=== PATIENT | male | born 1950 | race Caucasian/White ===

== ENCOUNTER 2016-06-09 11:34 | Inpatient (IN) | payer BC, OTHER ==
[2016-06-03 15:32] VITALS: Ht 179.1 cm; Wt 97.7 kg
[2016-06-04 12:18] LABS: BASO % 0.4 %; BASO ABS # 0.02 K/uL (0-0.2); COMPLETE YES; IG% 0.2 %; LYMPH % 26.4 %; LYMPH ABS # 1.39 K/uL (1.2-3.4); MEAN CELL VOLUME 90.3 fL (80-100); MEAN CORPUSCULAR HEMOGLOBIN 29.6 pg (25-34); MEAN CORPUSCULAR HGB CONC 32.8 g/dl (32-36); MEAN PLATELET VOLUME 9.7 fL (7.4-10.4); MONO % 12.7 %; NEUT % 56.3 %; PLATELET COUNT 222 K/uL (130-400); RED BLOOD COUNT 4.76 M/uL (4.7-6.1); WHITE BLOOD COUNT 5.27 K/uL (4.8-10.8)
[2016-06-04 12:35] LABS: PARTIAL THROMBOPLASTIN RATIO 1.1; PROTHROMBIN TIME (PATIENT) 11.1 SECONDS (9.0-12.0)
[2016-06-04 12:40] LABS: URINE APPEARANCE CLEAR (CLEAR); URINE BILIRUBIN NEG (NEG); URINE COLOR YELLOW; URINE EPITHELIAL CELL AUTO 0-5 /lpf (0-5); URINE NITRITE NEG (NEG); URINE PH 7.5 (4.5-7.5); URINE SPECIFIC GRAVITY 1.014 (1.000-1.030); UROBILINOGEN NEG (NEG); ZZUR CULT IF INDIC CLEAN CATCH NO
[2016-06-04 12:47] LABS: MANUAL MICROSCOPIC REQUIRED? NO; REVIEW REQ? NO
[2016-06-04 13:07] LABS: CREATININE 0.72 mg/dl (0.60-1.40)
--- NOTE | 2016-06-08 14:31 | HISTORY & PHYSICAL EXAMINATION ---
DATE OF ADMISSION: 06/09/2016 CHIEF COMPLAINT: Painful right total knee replacement with probable extensor mechanism rupture. HISTORY OF PRESENT ILLNESS: Mr. North is a 66-year-old male who had his knee replaced in December 2015. The patient was doing well; however, he has been noticing increased swelling and instability in the right knee. He denies any injury or trauma. On exam in the office, patient was found to have likely rupture of his medial retinaculum and has been scheduled for extensor mechanism repair. PAST MEDICAL HISTORY: Asthma, irregular heartbeat, colitis and tremor. He denies heart disease, diabetes or DVT. PAST SURGICAL HISTORY: Vasectomy, hemorrhoidectomy and right TKA. SOCIAL HISTORY: The patient drinks 2-3 drinks per week. Denies tobacco use. He lives in a 2-story home with his and is a retired schoolteacher. FAMILY HISTORY: Negative for DVT. MEDICATIONS: Aspirin 81 mg daily, Azilect 1 mg daily, Flovent 112 mcg 1-2 puffs daily, Proventil 90 mcg p.r.n., Lialda 1.2 grams 2 daily, calcium, fish oil, vitamin D3, folic acid, Viagra p.r.n. ALLERGIES: NSAIDs IN MODERATION DUE TO COLITIS. REVIEW OF SYSTEMS: See HPI. Ten other systems reviewed, all negative. PHYSICAL EXAMINATION: VITAL SIGNS: Height 5 feet 10 inches, weight 214 pounds, BMI 31. GENERAL: This is a well-developed, well-nourished male who is alert and oriented x3. Mood and affect are appropriate. HEENT: Normocephalic, atraumatic. Mucous membranes are moist and intact. NECK: Supple without lymphadenopathy. HEART: Regular rate and rhythm without murmurs, rubs or gallops. LUNGS: Clear to auscultation without wheezes or rhonchi. ABDOMEN: Soft and nontender. Bowel sounds are equal and active. EXTREMITIES: No ecchymosis, redness or warmth. He has a midline incision that is well healed. He has moderate prepatellar effusion. He also has a small scar in the anterior portions of his knee from a chainsaw incident. He has neutral alignment. Range of motion is from 0-120 degrees. He has no laxity. He is neurovascularly intact. X-RAY EXAMINATION: AP and lateral views show a posterior stabilized knee in adequate position. His patellar is tracking laterally on the sunrise view. 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 PLAN: The patient will be admitted for extensor mechanism repair and probably change of the right knee. We will plan on aspirin for DVT prophylaxis. PCP is Dr. Mejia.
[~2016-06-09] VITALS: Ht 179.1 cm; Wt 97.7 kg
[2016-06-09] VITALS (7 sets, daily range): BP systolic 135–177; BP diastolic 77–94; PULSE 56–66; TEMP 36.4–36.7; O2SAT 96–100
[2016-06-09] MEDS: TRANEXAMIC ACID INJ 1,000 MG in SODIUM CHLORIDE 0.9% 100ML 100 ML IV SCH ×2 (06:30→13:45)
[~2016-06-09 11:34] MED LIST: ACETAMINOPHEN 500 MG TAB PO SCH; ALBUAER INH; ASPI81TA28 PO; AZL/5 PO; BUPIVACAINE 0.25% 30 ML VIAL ONE; BUPIVACAINE 0.5 % 5 MG/1 ML PF 10ML VIAL ONE; CEFAZOLIN 2000 MG/60 ML D5W 60 ML IV SCH; DEXAMETHASONE 4 MG TAB PO SCH; FAMOTIDINE 20 MG TAB PO SCH; FLVHFA44 INH; FOLI1TAB7 PO; GABAPENTIN 300 MG CAP PO SCH; LACTATED RINGER'S 1000ML 1,000 ML IV SCH; MESA1.2T PO; METOCLOPRAMIDE HCL 10 MG TAB PO SCH; OXYCODONE HCL 10 MG TABCR (OXYCONTIN) PO SCH; POLYMYXIN B SULFATE 100,000 UNITS in NSS 100ML IR SCH; ROPIVACAINE 5MG/ML 30 ML 150 MG, BUPIVACAINE/EPINEPHR 0.5% MPF 30 ML, KETOROLAC TROMETH... INFIL SCH; SILD100T PO; VANCOMYCIN INJ 1,500 MG in SODIUM CHLORIDE 0.9% 500ML 500 ML IV SCH; VANCOMYCIN INJ 400 MG in NSS 100ML IR SCH
[2016-06-09] MEDS ORDERED: MIDAZOLAM HCL 1 MG/ML 2ML VIAL ONE ×2 (11:56)
--- NOTE | 2016-06-09 12:38 | History & Physical Bridge Note ---
H&P Re-Evaluation Bridge Note: I have examined the patient, reviewed the History & Physical and in the interval since the performance of the History & Physical I have noted the following changes of clinical significance: No changes noted
[2016-06-09] MEDS ORDERED: BUPIVACAINE/EPINEPHRINE 0.25% 1:200,000 30 ML VIAL ONE (13:36)
[2016-06-09] MEDS ORDERED: ORTHO JOINT ANESTHETIC ONE (13:36)
[2016-06-09] MEDS ORDERED: BACITRACIN 50000 UNIT VIAL ONE (13:37)
[2016-06-09] MEDS ORDERED: POVIDONE-IODINE OP SOLN 30 ML BTL ONE (13:37)
[2016-06-09] MEDS ORDERED: PROPOFOL IV EMULSION 10 MG/ML 20 ML VIAL IV ONE (14:19)
[2016-06-09] MEDS ORDERED: LIDOCAINE HCL 2% 2 ML VIAL (20MG/ML) ONE (14:19)
[2016-06-09] MEDS ORDERED: EpHEDrine SULFATE INJ 50 MG/ML AMP IV PRN (15:00)
[2016-06-09] MEDS ORDERED: PHENYLEPHRINE 100MCG/ML 5ML SYR IV PRN (15:00)
[2016-06-09] MEDS ORDERED: ATROPINE SULFATE 0.1 MG/ML 5ML SYR IV PRN (15:00)
[2016-06-09] MEDS ORDERED: ONDANSETRON INJ 2 MG/ML 2 ML VIAL IV PRN ×2 (15:00→16:00)
[2016-06-09] MEDS ORDERED: HYDROmorphone INJ 2 MG/ML SYR/VIAL IV PRN (15:00)
[2016-06-09] MEDS ORDERED: LABETALOL HCL IV 5 MG/ML 20ML IV PRN (15:00)
--- NOTE | 2016-06-09 15:52 | [facility] Post Operative Brief Note ---
Immediate Operative Summary Operative Date Jun 09, 2016. 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 Procedure(s) Performed Right Knee Extensor Mechanism Repair with Poly Exchange Surgeon Dr. Shepherd Tank Hoop Bender Surgeon(s) Tootie Mccormick PA-C Estimated Blood Loss 25ml Findings ABOVE Specimens For Frozen Section: 1. Right knee synovial tissue - Sent Stat at 1500 For Culture: 1. Right knee synovial fluid - Gram Stain, Culture and Sensitivity, Aerobic/Anaerobic - Sent Stat at 1500 Complication(s) None Disposition Recovery Room / PACU
[2016-06-09] MEDS ORDERED: TRAMADOL HCL 50 MG TAB PO PRN (16:00)
[2016-06-09] MEDS ORDERED: ZOLPIDEM TARTRATE 5 MG TAB PO PRN (16:00)
[2016-06-09] MEDS ORDERED: ALBUTEROL HFA 8 GM INHALER INH PRN (16:00)
[2016-06-09] MEDS ORDERED: SOD PHOSPHATE/SOD BIPHOSPHATE ENEMA 132 ML BTL PR PRN (16:00)
[2016-06-09] MEDS ORDERED: ALUMINUM/MAGNESIUM/SIMETH (MAALOX MAX) 30 ML UDC PO PRN (16:00)
[2016-06-09] MEDS ORDERED: BISACODYL 10 MG SUPP PR PRN (16:00)
[2016-06-09] MEDS ORDERED: MAGNESIUM HYDROXIDE SUSP 30 ML UDC PO PRN (16:00)
[2016-06-09] MEDS ORDERED: METOCLOPRAMIDE HCL INJ 5 MG/ML 2 ML VIAL IV PRN (16:00)
[2016-06-09] MEDS ORDERED: MoRPHine SULFATE 2 MG/ML CARP IV PRN (16:00)
[2016-06-09] MEDS ORDERED: DiphenhydrAMINE HCL 50 MG/ML VIAL IV PRN (16:00)
--- NOTE | 2016-06-09 16:43 | DIAGNOSTIC IMAGING REPORT ---
RIGHT KNEE 1 OR 2 VIEWS ROUTINE CLINICAL HISTORY: Postoperative evaluation. COMPARISON: Right knee radiographs January 07, 2016. FINDINGS: Alignment of the total right knee arthroplasty is anatomic. There is no periprosthetic fracture or unexpected radiopaque foreign body. Drains are in place. IMPRESSION: Intact total right knee arthroplasty. No periprosthetic fracture or unexpected radiopaque foreign body. Electronically signed by: Mayank Rea M.D. 06/09/2016 4:41 PM Dictated Date/Time: 06/09/2016 4:40 PM
--- NOTE | 2016-06-09 16:58 | Anesthesiology Progress Note ---
Anesthesia Post Op Note Date & Time Jun 09, 2016 at 16:57 Vital Signs Pain Intensity: 0 Vital Signs Past 12 Hours Date Time Temp Pulse Resp B/P Pulse Ox O2 Delivery O2 Flow Rate FiO2 06/09/16 16:45 62 14 133/83 95 Nasal Cannula 2 06/09/16 16:35 63 21 128/86 96 Nasal Cannula 2 06/09/16 16:25 66 14 124/86 96 Nasal Cannula 2 06/09/16 16:14 36.1 67 16 132/71 97 Nasal Cannula 2 06/09/16 12:41 36.5 62 20 177/94 97 Room Air Notes Mental Status: alert / awake / arousable, participated in evaluation Pt Amnestic to Procedure: Yes Nausea / Vomiting: adequately controlled Pain: adequately controlled Airway Patency, RR, SpO2: stable & adequate BP & HR: stable & adequate Hydration State: stable & adequate Anesthetic Complications: no major complications apparent
--- NOTE | 2016-06-09 17:21 | OPERATIVE REPORT ---
DATE OF OPERATION: 06/09/2016 PREOPERATIVE DIAGNOSIS: Disruption of the extensor mechanism, status post right total knee replacement. POSTOPERATIVE DIAGNOSIS: Same. PROCEDURES: 1. Exploration and repair of the extensor mechanism. 2. Revise tibial polyethylene insert. SURGEON: Todd Shepherd MD FIRE HYDRANT MECHANIC: MICHELLE Waller ANESTHESIA: Spinal. TOURNIQUET TIME: 90 minutes at 275 mmHg. DRAINS: Hemovac x2. CULTURES: Aerobic and anaerobic. COMPLICATIONS: None. COMPONENTS USED: [employer] Journey Knee System: Polyethylene insert 7 x 10. NOTE: MICHELLE Waller was present and assisted throughout due to the complicated nature of this case. She helped with preparation and set up. She first assisted in closure of the capsule repair and then personally closed the subcutaneous and skin layers and applied the postoperative dressing. INDICATION FOR PROCEDURE: This patient is a very active 66-year-old male who on 01/07/2016 underwent an uneventful total knee replacement. He had essentially uneventful course and seemed to do well. At a postop visit, it was noted that his patella mechanism was felt to have a defect. The patient was able to actively extend his leg and had no discomfort. He continued to have swelling and increasing evidence of lateral patellar tracking. It was decided to explore the wound and repair. DESCRIPTION OF PROCEDURE: Following satisfactory spinal, the patient was supine. A tourniquet was placed. The lower extremity was prepared with ChloraPrep and draped sterilely. Following a surgical timeout, the tourniquet was inflated without exsanguination. A midline incision was made. The capsule was healed, although it was quite redundant on the medial side. Upon entering the knee, there was a large amount of fluid and appeared slightly hemorrhagic, but benign in nature. The synovial tissue was abundant and was sent for frozen section, which was reported as no organisms seen and what appeared to be old organized hematoma, possibly from the tear. A Gram stain was also sent and was reported as rare WBCs and no organisms. The old bloody synovial tissue was removed using 4 liters of Versajet lavage. The polyethylene was removed allowing access to the posterior capsule. A trial polyethylene was inserted and was stable. A Betadine soak was then performed for 5 minutes. The Betadine was then irrigated. The final polyethylene insert was placed and after irrigation with an additional 2 liters of pulse lavage, 2 drains were placed. The knee was stable. A moderate lateral release had been done, which improved patellar tracking. Two drains were placed. The medial capsular tissue was then closed in a [id number] type fashion, first with #2 FiberWire at multiple intervals and then oversewn with #1 Vicryl throughout. This effected a very nice repair and the patella appeared to track well. Following irrigation, the subcutaneous tissues were closed with 2-0 Vicryl. The skin was closed with a running subcuticular stitch of 3-0 V-Loc. Dermabond, silver dressing and a negative pressure wound dressing were applied. The tourniquet was deflated. The patient was returned to his bed in stable condition. I attest to the content of the Intraoperative Record and any orders documented therein. Any exceptio ns are noted below.
[2016-06-09] MEDS: D5W AND 1/2NSS + 20MEQ KCL 1,000 ML IV SCH (18:40)
[2016-06-09] MEDS: OXYCODONE HCL IR 5 MG TAB (IMMEDIATE RELEASE) PO PRN (19:47)
[2016-06-09] MEDS: SENNA 8.6 MG TAB PO SCH (21:04)
[2016-06-09] MEDS: FLUTICASONE PROP HFA INH 44 MCG INHALER INH SCH (21:04)
[2016-06-09] MEDS: OXYCODONE HCL 10 MG TABCR (OXYCONTIN) PO SCH (21:09)
[2016-06-09] MEDS: CEFAZOLIN IV 2,000 MG in DEXTROSE 5% 50ML 50 ML IV SCH (21:55)
[2016-06-09] MEDS: ACETAMINOPHEN 500 MG TAB PO SCH (21:58)
[2016-06-10 03:25] VITALS: BP 121/72; PULSE 58; TEMP 36.4; O2SAT 96
[2016-06-10] MEDS: D5W AND 1/2NSS + 20MEQ KCL 1,000 ML IV SCH ×2 (03:42→13:48)
[2016-06-10] MEDS: CEFAZOLIN IV 2,000 MG in DEXTROSE 5% 50ML 50 ML IV SCH (05:44)
[2016-06-10] MEDS: ACETAMINOPHEN 500 MG TAB PO SCH ×3 (05:44→21:38)
[2016-06-10 06:02] LABS: HEMATOCRIT 40.5 % (42-52); MEAN CELL VOLUME 89.6 fL (80-100); MEAN CORPUSCULAR HEMOGLOBIN 29.9 pg (25-34); MEAN CORPUSCULAR HGB CONC 33.3 g/dl (32-36); MEAN PLATELET VOLUME 8.9 fL (7.4-10.4); PLATELET COUNT 211 K/uL (130-400); RED BLOOD COUNT 4.52 M/uL (4.7-6.1); WHITE BLOOD COUNT 12.96 K/uL (4.8-10.8)
[2016-06-10 06:07] LABS: INR 1.1 (0.9-1.1); PROTHROMBIN TIME (PATIENT) 11.4 SECONDS (9.0-12.0)
[2016-06-10 06:36] LABS: CALCIUM 8.3 mg/dl (8.5-10.1); CREATININE 0.81 mg/dl (0.60-1.40); POTASSIUM 4.3 mmol/L (3.5-5.1)
[2016-06-10 07:20] VITALS: BP 108/70; PULSE 60; TEMP 36.7; O2SAT 96
--- NOTE | 2016-06-10 08:18 | Orthopedic Progress Note ---
Orthopedic Progress Note Date of Service Jun 10, 2016. Subjective Post OP Day: 1 Reports: feeling well, Denies: SOB, calf pain, chest pain, light headedness, nausea / vomiting Objective calves soft nontender, N/V intact, dressing C/D/I (PRINEO+ ACTICOAT + PREVENA), A&O x3, toes mobile, hemovac drainage (155/75CC PER SHIFT) Date Time Temp Pulse Resp B/P Pulse Ox O2 Delivery O2 Flow Rate FiO2 06/10/16 07:20 36.7 60 16 108/70 96 Room Air 06/10/16 03:25 36.4 58 16 121/72 96 Room Air 06/09/16 23:38 Room Air 06/09/16 23:06 36.5 56 16 137/81 96 Room Air 06/09/16 19:27 135/83 06/09/16 19:12 36.5 65 16 98 Nasal Cannula 2.0 06/09/16 18:16 36.7 66 16 156/87 99 Nasal Cannula 2.0 06/09/16 17:45 96 Nasal Cannula 2.0 06/09/16 17:45 36.4 57 16 136/92 100 Nasal Cannula 2.0 06/09/16 17:15 Nasal Cannula 2.0 06/09/16 17:15 36.6 16 154/77 96 Nasal Cannula 2.0 06/09/16 17:05 60 16 125/83 95 Nasal Cannula 2 06/09/16 16:55 36.3 61 10 130/81 95 Nasal Cannula 2 06/09/16 16:45 62 14 133/83 95 Nasal Cannula 2 06/09/16 16:35 63 21 128/86 96 Nasal Cannula 2 06/09/16 16:25 66 14 124/86 96 Nasal Cannula 2 06/09/16 16:14 36.1 67 16 132/71 97 Nasal Cannula 2 06/09/16 12:41 36.5 62 20 177/94 97 Room Air Laboratory Results 24 Hours: Test 06/10/16 05:45 Hematocrit 40.5 % Hemoglobin 13.5 g/dL Prothromb Time International Ratio 1.1 Prothrombin Time 11.4 SECONDS Additional Notes: GRAM STAIN Final 06/10/16-724 RESULT RARE WBCs SEEN FEW GRAM POSITIVE COCCI CORRECTED REPORT Report corrected on 06/10/16 at 0721 by KANIKA. FEW GRAM POSITIVE COCCI previously reported as NO ORGANISMS SEEN. Phoned corrected report to DONNA BA on 06/10/16 at 0721 by Loreto Carrillo. Results were verbalized back to KANIKA. OR AER/MICHELE CULT Results Pending Assessment & Plan Assessment: POD#1 SP EXPLORATION AND MEDIAL RETINACULAR REPAIR, NOW WITH POSSIBLE INFECTION Plan: INITIAL GRAM STAIN INTRA OP WAS FEW WBCS, NO ORGANISMS. TODAY REPORT WAS UPDATED TO FEW GRAM POSITIVE COCCI. CULTURES PENDING WILL EMPIRICALLY PLACE PATIENT ON VANCO WILL HOLD OFF ON ORDERING PICC AND SETTING UP HOME IVs UNTIL CULTURES ARE RESULTED Inhouse Planning Pain Management: Oxycontin, PO Tylenol, Oxy IR DVT Prophylaxis: TEDs, SCDs, ASA Discharge Planning Discharge Planning: home with home health, home with IV medication (POSSIBLY)
[2016-06-10] MEDS: MULTIVITAMIN TAB PO SCH (09:00)
[2016-06-10] MEDS ORDERED: ASPIRIN 81 MG ECTAB PO SCH (09:00)
[2016-06-10] MEDS: PANTOprazole SOD 40 MG TAB PO SCH (09:00)
[2016-06-10] MEDS: FLUTICASONE PROP HFA INH 44 MCG INHALER INH SCH ×2 (09:00→21:39)
[2016-06-10] MEDS ORDERED: VANCOMYCIN INJ 2,400 MG in SODIUM CHLORIDE 0.9% 500ML 500 ML IV SCH (09:00)
[2016-06-10] MEDS: OXYCODONE HCL 10 MG TABCR (OXYCONTIN) PO SCH ×2 (09:02→21:41)
[2016-06-10] MEDS ORDERED: VANCOMYCIN CONSULT ACTIVE PRN (09:15)
--- NOTE | 2016-06-10 11:13 | Anesthesiology Progress Note ---
Anesthesia Post Op Note Date & Time Jun 10, 2016 at 11:11 Vital Signs Pain Intensity: 3.0 Vital Signs Past 12 Hours Date Time Temp Pulse Resp B/P Pulse Ox O2 Delivery O2 Flow Rate FiO2 06/10/16 08:00 Room Air 06/10/16 07:20 36.7 60 16 108/70 96 Room Air 06/10/16 03:25 36.4 58 16 121/72 96 Room Air 06/09/16 23:38 Room Air Notes Mental Status: alert / awake / arousable, participated in evaluation Pt Amnestic to Procedure: Yes Nausea / Vomiting: adequately controlled Pain: adequately controlled Airway Patency, RR, SpO2: stable & adequate BP & HR: stable & adequate Hydration State: stable & adequate Neuraxial Anesthesia: sensory block resolved Anesthetic Complications: no major complications apparent
--- NOTE | 2016-06-10 12:10 | Medical Consult ---
Consultation Date of Consultation: Jun 10, 2016. Attending Physician: Todd Shepherd M.D. Reason for Consultation: Possible TKA infection History of Present Illness Patient is a 66-year-old man admitted to the hospital with concerns of right knee swelling and instability. The patient had a right TKA completed in December 2015. He initially did very well following surgery. He has been training on his bike at home, and states that he has biked up to 30 miles since his surgery. Overall he had been doing very well, but he did began to notice increasing swelling recently. He had been going to therapy for suspected lymphedema following surgery, but the swelling did not improve. He then began to experience some instability and was admitted for concerns of rupture of his medial retinaculum and mechanism repair. The patient had not been experiencing any fever, sweats, chills, nausea, vomiting, diarrhea, shortness of breath, chest pain, or urinary symptoms at home. He also denies surrounding erythema or warmth of the right knee. Since admission, the patient did have exploration and repair of the extensor mechanism of his right TKA. The operative record was reviewed today. It was noted that he was found to have a large amount of fluid in his right knee joint which appeared to be hemorrhagic in nature. Cultures were taken at that time, and initially Gram stain showing rare white blood cells and no organisms. The patient's Gram stain is now showing rare gram-positive cocci. The patient was placed empirically on IV vancomycin for concerns of infection. I did discuss this patient with Pia Mccormick PA-C as well. His operative culture is currently pending. Knee x-ray showed intact right TKA. 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 Family History Noncontributory Social History Smoking Status: Never Smoker Allergies Coded Allergies: NSAIDs (Verified Adverse Reaction, Unknown, LARGE QUANITIES CAUSES GI ISSUES, 06/09/16) Home Medications Reported Home Medications Medications Dose Route/Sig Max Daily Dose Days Date Category Dose Instructions Aspirin Ec (Aspirin) 81 Mg Tab 81 Mg PO HS 06/03/16 Reported Viagra (Sildenafil Citrate) 100 Mg Tab 50 Mg PO PRN PRN 11/28/15 Reported Folvite (Folic Acid) 1 Mg Tab 1 Mg PO QAM 10/13/16 Reported Lialda (Mesalamine) 1.2 Gm Tab 2 Tab PO QAM 90 11/28/15 Reported Proventil Hfa (Albuterol Sulfate) 108 Mcg/Act Aer 2 Puff INH Q4 PRN 11/28/15 Reported Flovent Hfa (Fluticasone Propionate) 120 Puffs/5280 Mcg Aero 2 Puffs INH BID 30 11/28/15 Reported Azilect (Rasagiline) 0.5 Mg Tab 1 Mg PO HS 11/28/15 Reported HOLD ONE WEEK PRIOR TO SURGERY Current Inpatient Medications Current Inpatient Medications Medications (Trade) Dose Ordered Sig/Macy Route Start Time Stop Time Status Last Admin Dose Admin Potassium Chloride/Dextrose/ Sod Cl (D5W And 1/2nss + 20meq KCl) 1,000 ml @ 100 mls/hr Q10H IV 06/09/16 17:40 06/10/16 17:39 06/10/16 03:42 100 MLS/HR Oxycodone HCl (Roxicodone Immediate Rel Tab) 1 TABLET FOR PAIN RATING... Q4H PRN PO 06/09/16 16:00 06/23/16 15:59 06/09/16 19:47 10 MG Oxycodone HCl (Oxycontin Tab) 10 mg Q12 PO 06/09/16 21:00 06/23/16 20:59 06/10/16 09:02 10 MG Morphine Sulfate (MoRPHine SULFATE INJ) 2 mg Q2HWA PRN IV 06/09/16 16:00 06/23/16 15:59 Acetaminophen (Tylenol Tab) 1,000 mg Q8 PO 06/09/16 22:00 07/09/16 21:59 06/10/16 05:44 1,000 MG Magnesium Hydroxide (Milk Of Magnesia Susp) 30 ml Q6H PRN PO 06/09/16 16:00 07/09/16 15:59 Bisacodyl (Dulcolax Supp) 10 mg DAILY PRN [place] 06/09/16 16:00 07/09/16 15:59 Sodium Biphosphate/ Sodium Phosphate (Fleet Enema) 132 ml DAILY PRN [place] 06/09/16 16:00 07/09/16 15:59 Senna (Senokot Tab) 17.2 mg HS PO 06/09/16 21:00 5/25/17 20:59 06/09/16 21:04 17.2 MG Diphenhydramine HCl (Benadryl Cap) 25 mg Q8H PRN PO 06/09/16 16:00 07/09/16 15:59 Diphenhydramine HCl (Benadryl Inj) 25 mg Q8H PRN IV 06/09/16 16:00 07/09/16 15:59 Al Hydrox/Mg Hydrox/Simethicone (Maalox Max Susp) 15 ml Q4H PRN PO 06/09/16 16:00 07/09/16 15:59 Zolpidem Tartrate (Ambien Tab) 5 mg HSZ PRN PO 06/09/16 16:00 07/09/16 15:59 Multivitamins (Multivitamin Tab) 1 tab QAM PO 06/10/16 09:00 07/10/16 08:59 Ondansetron HCl (Zofran Inj) 4 mg Q6H PRN IV 06/09/16 16:00 07/09/16 15:59 Metoclopramide HCl (Reglan Inj) 10 mg Q6H PRN IV 06/09/16 16:00 07/09/16 15:59 Pantoprazole Sodium (Protonix Tab) 40 mg QAM PO 06/10/16 09:00 07/10/16 08:59 Tramadol HCl (Ultram Tab) 1 tablet for pain rating... Q4H PRN PO 06/09/16 16:00 07/09/16 15:59 Albuterol (Ventolin Hfa Inhaler) 1 puffs Q4 PRN INH 06/09/16 16:00 07/09/16 15:59 Fluticasone Propionate (Flovent Hfa 44MCG Inhaler) 2 puffs BID INH 06/09/16 21:00 07/09/16 20:59 06/10/16 09:00 2 PUFFS Folic Acid (Folvite Tab) 1 mg QAM PO 06/10/16 09:00 07/10/16 08:59 Miscellaneous Information (Order Awaiting Action) 1 ea QS N/A 06/09/16 18:30 07/09/16 18:29 Aspirin (Ecotrin Tab) 81 mg BID PO 06/10/16 09:00 07/10/16 08:59 06/10/16 09:05 81 MG Vancomycin HCl (Consult) 1 ea UD PRN N/A 06/10/16 09:15 07/10/16 09:14 Review of Systems Constitutional: No chills, No fever, No sweats Eyes: No worsening of vision ENT: No hearing loss Respiratory: No cough, No shortness of breath Cardiovascular: No chest pain Abdomen: No nausea, No pain, No vomiting Musculoskeletal: + swelling (right knee- severe edema, mild tenderness, 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) Genitourinary - Male: No dysuria, No hematuria Integumentary: No itch, No rash Physical Exam Date Time Temp Pulse Resp B/P Pulse Ox O2 Delivery O2 Flow Rate FiO2 06/10/16 08:00 Room Air 06/10/16 07:20 36.7 60 16 108/70 96 Room Air 06/10/16 03:25 36.4 58 16 121/72 96 Room Air 06/09/16 23:38 Room Air 06/09/16 23:06 36.5 56 16 137/81 96 Room Air 06/09/16 19:27 135/83 06/09/16 19:12 36.5 65 16 98 Nasal Cannula 2.0 06/09/16 18:16 36.7 66 16 156/87 99 Nasal Cannula 2.0 06/09/16 17:45 96 Nasal Cannula 2.0 06/09/16 17:45 36.4 57 16 136/92 100 Nasal Cannula 2.0 06/09/16 17:15 Nasal Cannula 2.0 06/09/16 17:15 36.6 16 154/77 96 Nasal Cannula 2.0 06/09/16 17:05 60 16 125/83 95 Nasal Cannula 2 06/09/16 16:55 36.3 61 10 130/81 95 Nasal Cannula 2 06/09/16 16:45 62 14 133/83 95 Nasal Cannula 2 06/09/16 16:35 63 21 128/86 96 Nasal Cannula 2 06/09/16 16:25 66 14 124/86 96 Nasal Cannula 2 06/09/16 16:14 36.1 67 16 132/71 97 Nasal Cannula 2 06/09/16 12:41 36.5 62 20 177/94 97 Room Air General Appearance: WD/WN, no apparent distress Head: normocephalic, atraumatic Eyes: normal inspection, sclerae normal ENT: hearing grossly normal Neck: supple, trachea midline Respiratory/Chest: no respiratory distress, no accessory muscle use Cardiovascular: regular rate, rhythm Extremities/Musculoskelatal: + pertinent finding (knee immobilizer and dressing in place right lower extremity) Neurologic/Psych: alert, normal mood/affect Skin: warm/dry, no rash, + pertinent finding (very mild erythema of cheeks and chest) Laboratory Results RUN DATE: 06/10/16 [facility] PAGE 1 RUN TIME: 724 Specimen Inquiry PATIENT: ANGELLA BLACK LOC: Doug U # : [id number] AGE/SX: 66/M ROOM: 18 REG : 06/09/[address]: Todd Shepherd M.D. : 1950 BED: 1 DIS : STATUS: ADM IN TLOC: SPEC #: [id number] DONNIE: 06/09/16-1450 STATUS: RES REQ #: [id number] RECD: 06/09/[address]: Todd Shepherd M.D. SOURCE: JOINT FLSP ENTR: 06/09/[address]: Bel Mejia D.O. SPDESC: KNEE RIGHT ORDERED: AER/MICHELE CULTSMR Procedure Result Verified Site GRAM STAIN Final 06/10/16-724 RESULT RARE WBCs SEEN FEW GRAM POSITIVE COCCI CORRECTED REPORT Report corrected on 06/10/16 at 0721 by KANIKA. FEW GRAM POSITIVE COCCI previously reported as NO ORGANISMS SEEN. Phoned corrected report to DONNA BA on 06/10/16 at 0721 by Loreto Carrillo. Results were verbalized back to KANIKA. OR AER/MICHELE CULT Results Pending Item Value Date Time Gram Stain - Final Resulted 06/09/16 4021 Joint Fluid/Space (Synovial) Knee Right Last 24 Hours Test 4/26/17 05:45 06/10/16 09:53 White Blood Count 12.96 K/uL Red Blood Count 4.52 M/uL Hemoglobin 13.5 g/dL Hematocrit 40.5 % Mean Corpuscular Volume 89.6 fL Mean Corpuscular Hemoglobin 29.9 pg Mean Corpuscular Hemoglobin Concent 33.3 g/dl RDW Standard Deviation 46.8 fL RDW Coefficient of Variation 14.2 % Platelet Count 211 K/uL Mean Platelet Volume 8.9 fL Prothrombin Time 11.4 SECONDS Prothromb Time International Ratio 1.1 Sodium Level 138 mmol/L Potassium Level 4.3 mmol/L Chloride Level 106 mmol/L Carbon Dioxide Level 26 mmol/L Anion Gap 6.0 mmol/L Blood Urea Nitrogen 17 mg/dl Creatinine 0.81 mg/dl Est Creatinine Clear Calc Drug Dose 103.2 ml/min Estimated GFR () 105.8 Estimated GFR (Non- 91.3 BUN/Creatinine Ratio 21.0 Random Glucose 136 mg/dl Calcium Level 8.3 mg/dl Erythrocyte Sedimentation Rate 4 mm/hr C-Reactive Protein 0.45 mg/dl Assessment & Plan Patient with recent history of right TKA in December now with questionable right septic TKA. Rare GPC seen on gram stain but culture is currently pending. Patient was placed on IV Vancomycin pending culture results. Would await culture result to place PICC line, but feel that likely this patient may end up needing 6 weeks of IV therapy pending cultures. I had a long discussion with the patient and his regarding possible infection. We will continue to follow. case reviewed and agree with above assessment, continue abx and follow cultures
[2016-06-10] MEDS ORDERED: NURSING VERBAL MED ORDER ONE (14:45)
[2016-06-10 15:37] VITALS: BP 150/84; PULSE 80; TEMP 36.9; O2SAT 96
[2016-06-10] MEDS ORDERED: WARFARIN SOD 5 MG TAB PO SCH (16:00)
[2016-06-10] MEDS: [UNRECOGNIZED DRUG - OTHER] PO SCH (16:00)
[2016-06-10] MEDS: LIALDA 1.2 GM PO SCH (16:00)
--- NOTE | 2016-06-10 17:15 | Pharmacy Progress Note ---
Pharmacy Antibiotic Consult Date of Service: Jun 10, 2016. Pharmacy Dosing Scope Pharmacy is consulted to initiate vancomycin IV dosing therapy, order appropriate labs and adjust drug dose/frequency. Subjective The patient is a 66 year old male admitted on Jun 09, 2016 at 15:59. He is s/p rt. knee TKA 2015. He now presents with knee pain and swelling. To OR today for repair. Vancomycin is ordered as the patient's Gram stain is now showing rare gram-positive cocci. The patient was placed empirically on IV vancomycin for concerns of infection. Objective Height (Feet): 5 Height (Inches): 10.5 Weight (Kilograms): 97.730 Lab Results (24hrs): Laboratory Tests Test 06/10/16 05:45 BUN/Creatinine Ratio 21.0 Blood Urea Nitrogen 17 mg/dl Creatinine 0.81 mg/dl White Blood Count 12.96 K/uL Assessment & Plan Vancomycin: Loading dose: 2400 mg IV X 1 dose (~25mg/kg) then: 1500 mg IV every 10 hours. Pt also rec'd a 15mg/kg preop vanco dose on 06/09. Goal peak level estimate: between 35 - 40 mcg/mL. Goal trough level estimate: between 15 - 20 mcg/mL. Peak and trough or random level has been ordered for: 06/11 prior to 1600 dose. Pharmacy will continue to follow and will adjust dose/frequency as necessary. Thank you
[2016-06-10] MEDS: OXYCODONE HCL IR 5 MG TAB (IMMEDIATE RELEASE) PO PRN (19:03)
[2016-06-10] MEDS: VANCOMYCIN INJ 1,500 MG in SODIUM CHLORIDE 0.9% 500ML 500 ML IV SCH (20:21)
[2016-06-10] MEDS: SENNA 8.6 MG TAB PO SCH (21:39)
[2016-06-10 23:59] VITALS: BP 143/82; PULSE 72; TEMP 36.7; O2SAT 96
[2016-06-11] MEDS: ACETAMINOPHEN 500 MG TAB PO SCH ×3 (05:45→21:05)
[2016-06-11] MEDS: VANCOMYCIN INJ 1,500 MG in SODIUM CHLORIDE 0.9% 500ML 500 ML IV SCH (05:45)
[2016-06-11 07:59] VITALS: BP 145/85; PULSE 60; TEMP 36.6; O2SAT 100
--- NOTE | 2016-06-11 08:07 | Orthopedic Progress Note ---
Orthopedic Progress Note Date of Service Jun 11, 2016. Subjective Post OP Day: 2 Reports: feeling well, Denies: SOB, calf pain, chest pain, light headedness, nausea / vomiting Objective calves soft nontender, N/V intact, dressing C/D/I (PREVENA, KNEE IMMOBILIZER), A &O x3, toes mobile Date Time Temp Pulse Resp B/P Pulse Ox O2 Delivery O2 Flow Rate FiO2 06/11/16 07:59 36.6 60 18 145/85 100 Room Air 06/11/16 00:15 Room Air 06/10/16 23:59 36.7 72 16 143/82 96 Room Air 06/10/16 17:00 Room Air 06/10/16 15:37 36.9 80 18 150/84 96 Room Air Additional Notes: GRAM STAIN Final 06/10/16-0725 RESULT RARE WBCs SEEN FEW GRAM POSITIVE COCCI CORRECTED REPORT Report corrected on 06/10/16 at 0721 by KANIKA. FEW GRAM POSITIVE COCCI previously reported as NO ORGANISMS SEEN. Phoned corrected report to DONNA BA on 06/10/16 at 0721 by Loreto Carrillo. Results were verbalized back to KANIKA. OR AER/MICHELE CULT Preliminary 06/10/16-1221 NO GROWTH TO DATE. Assessment & Plan Assessment: POD#2 SP EXPLORATION AND MEDIAL RETINACULAR REPAIR, NOW WITH POSSIBLE INFECTION Plan: INITIAL GRAM STAIN INTRA OP WAS FEW WBCS, NO ORGANISMS. REPORT WAS UPDATED TO FEW GRAM POSITIVE COCCI. CULTURES- NGTD WILL EMPIRICALLY PLACE PATIENT ON VANCO DR. GARCIA WANTMarlon TO TREAT X 6 WEEKS. WILL ORDER PICC LINE TODAY. PATIENT HAS FULL COVERAGE FOR HOME ABX. ANTICIPATE DC HOME ON DAPTO FOR EASE OF USE. APPRECIATE ID INPUT KNEE IMMOBILIZER AT ALL TIMES WILL NEED PT/INR DRAWS AT HOME. Inhouse Planning Pain Management: Oxycontin, PO Tylenol, Oxy IR DVT Prophylaxis: TEDs, SCDs, ASA Discharge Planning Discharge Planning: home with home health, home with IV medication (POSSIBLY)
--- NOTE | 2016-06-11 08:11 | Discharge Instructions ---
Discharge Instructions Date of Service Jun 11, 2016. Admission Reason for Admission: Right Knee Complications W/Internal Joint Prosthes Discharge Discharge Diagnosis / Problem: I&D RIGHT TKA WITH EXTENSOR MECHANISM REPAIR Discharge Goals Goal(s): Decrease discomfort, Improve function, Increase independence Activity Recommendations Activity Limitations: per Instructions/Follow-up section . Instructions / Follow-Up Instructions / Follow-Up ACTIVITY RECOMMENDATIONS: SELF CARE INSTRUCTIONS AFTER TOTAL KNEE REPLACEMENT A. NO PT NEEDED AT THIS TIME B. You may progress at your own pace from walking with a walker or crutches to a cane; then to no assistive devices. C. Make walking a part of your daily routine. Be up as much as comfortable with rest periods throughout the day. Rest with leg elevation is very important. Use the ice wrap frequently for the first 3-4 weeks. D. There are no restrictions on activities. You may ride in a car, shop, participate in radio program checker and all social activities. E. Wear the long elastic stockings (TESSA hose) 20 hours a day for 2 weeks after surgery. They can be removed several times a day for laundering and for a bath. F. You may shower, no tub baths until cleared by your doctor. SPECIAL CARE INSTRUCTIONS: VERY IMPORTANT TO READ AND REVIEW A. There are a few signs you need to watch for after you are home. Call [facility] if you notice any of the followin. Increased severe knee pain. Some pain is expected especially when you exercise. 2. Increased swelling in your leg or knee; pain or swelling of the calf muscle in either lower leg. 3. Any fluid drainage from the incision. 4. Shortness of breath or chest pain. B. Please call [facility] at if you have any concerns or questions about your operation or recovery. The doctor or his nurse will return your call promptly. C. You must take antibiotics before dental work, bladder, bowel or other surgery. Your doctor will provide you with a permanent care to carry describing this precaution. IMPORTANT: * HIGH RISK PATIENTS MAY BE PRESCRIBED A STRONGER BLOOD THINNER. THIS WILL BE PROVIDED AT DISCHARGE. -COUMADIN. WILL REQUIRE WEEKLY BLOOD DRAW AND DOSING ADJUSTMENTS * CALL IF INCREASED PAIN, REDNESS, DRAINAGE OR FEVER GREATER THAT 101. * WEAR TESSA HOSE 20 HOURS PER DAY FOR 2 WEEKS. Prevena- This is a large suction dressing covering your incision. This will help pull any excess drainage from the wound and allow your incision to heal properly. You may shower with this if you can keep the unit outside of the shower. If any bleeding or leakage is noted please call your doctor's office. This will remain on your incision for 7 days and then should be removed. This can be done yourself or by the home nursing staff if applicable. The entire unit is disposable once removed. Once removed, keep incision clean and dry. If redness or drainage is noted, please call your surgeon. DERMABOND Prineo- This is a mesh tape dressing that is covered with glue. It should remain in place until the incision is properly healed, usually 10-14 days. This dressing is designed to naturally slough off. You may trim the excess mesh tape as it peels off. Incision may be briefly wet in a shower. Dry immediately by blotting with a clean, dry towel. Do not bath or swim until instructed by your doctor. Do not scratch, rub, or pick at the dressing. Do not apply any topical ointments or lotions until dressing is completely removed and/or instructed by your doctor. There may be a small piece of suture material at one end of your incision. Do not pull or trim this. If it is bothersome or catching on clothing, you may cover it with a band-aid. WILL REQUIRE HOME IV ANTIBIOTICS X 6 WEEKS AND THEN WILL LIKELY TRANSITION TO PO. WILL NEED TO FOLLOW UP WITH DR. TATUM/ARSH AN OUTPATIENT FOR IV MANAGEMENT. FOLLOW UP VISIT: If appointment is not already scheduled: Please call [facility] to make a follow-up appointment for 2 weeks after your surgery at . Current Hospital Diet Patient's current hospital diet: Regular Diet Discharge Diet Recommended Diet: Regular Diet Procedures Procedures Performed: Right Knee Extensor Mechanism Repair with Poly Exchange Pending Studies Studies pending at discharge: no Medical Emergencies . Who to Call and When: Medical Emergencies: If at any time you feel your situation is an emergency, please call 911 immediately. . Non-Emergent Contact Non-Emergency issues call your: Surgeon . "Provider Documentation" section prepared by Tootie Mccormick. . VTE Core Measure Inpt VTE Proph given/why not?: Ayden (Coumadin), T.E.D. Stockings, SCD's [place] Drug Monitoring Program Search Results: patient reviewed within database, no issues identified
[2016-06-11] MEDS: MULTIVITAMIN TAB PO SCH (08:35)
[2016-06-11] MEDS: PANTOprazole SOD 40 MG TAB PO SCH (08:35)
[2016-06-11] MEDS: LIALDA 1.2 GM PO SCH (08:38)
[2016-06-11] MEDS: FLUTICASONE PROP HFA INH 44 MCG INHALER INH SCH ×2 (08:38→21:04)
[2016-06-11] MEDS: [UNRECOGNIZED DRUG - OTHER] PO SCH (08:38)
[2016-06-11] MEDS: OXYCODONE HCL 10 MG TABCR (OXYCONTIN) PO SCH ×2 (08:39→21:03)
--- NOTE | 2016-06-11 11:36 | Infectious Disease Progress Nt ---
Progress Note Date of Service Jun 11, 2016. Subjective Pt evaluation today including: conversation w/ patient, conversation w/ family (), physical exam, chart review, lab review, review of studies, conversation w/ method consultant (Dr. Shepherd), review of inpatient medication list Patient is feeling well today. His surgical culture is showing no growth to date. I did speak with Dr. Shepherd who feels that the patient likely should be treated with 6 weeks if IV abx therapy due to the appearance of the patient's synovium/knee during surgery. He is concerned for underlying infection. The patient is currently on IV Vancomycin and is tolerating this well. He is anticipating PICC line placement. All Other Systems: Reviewed and Negative Medications Current Inpatient Medications Medications (Trade) Dose Ordered Sig/Macy Route Start Time Stop Time Status Last Admin Dose Admin Oxycodone HCl (Roxicodone Immediate Rel Tab) 1 TABLET FOR PAIN RATING... Q4H PRN PO 06/09/16 16:00 06/23/16 15:59 06/10/16 19:03 5 MG Oxycodone HCl (Oxycontin Tab) 10 mg Q12 PO 06/09/16 21:00 06/23/16 20:59 06/11/16 08:39 10 MG Morphine Sulfate (MoRPHine SULFATE INJ) 2 mg Q2HWA PRN IV 06/09/16 16:00 06/23/16 15:59 Acetaminophen (Tylenol Tab) 1,000 mg Q8 PO 06/09/16 22:00 07/09/16 21:59 06/11/16 05:45 1,000 MG Magnesium Hydroxide (Milk Of Magnesia Susp) 30 ml Q6H PRN PO 06/09/16 16:00 07/09/16 15:59 06/11/16 08:39 30 ML Bisacodyl (Dulcolax Supp) 10 mg DAILY PRN FL 06/09/16 16:00 07/09/16 15:59 Sodium Biphosphate/ Sodium Phosphate (Fleet Enema) 132 ml DAILY PRN FL 06/09/16 16:00 07/09/16 15:59 Senna (Senokot Tab) 17.2 mg HS PO 06/09/16 21:00 07/09/16 20:59 06/10/16 21:39 17.2 MG Diphenhydramine HCl (Benadryl Cap) 25 mg Q8H PRN PO 06/09/16 16:00 07/09/16 15:59 Diphenhydramine HCl (Benadryl Inj) 25 mg Q8H PRN IV 06/09/16 16:00 07/09/16 15:59 Al Hydrox/Mg Hydrox/Simethicone (Maalox Max Susp) 15 ml Q4H PRN PO 06/09/16 16:00 07/09/16 15:59 Zolpidem Tartrate (Ambien Tab) 5 mg HSZ PRN PO 06/09/16 16:00 07/09/16 15:59 Multivitamins (Multivitamin Tab) 1 tab QAM PO 06/10/16 09:00 07/10/16 08:59 Ondansetron HCl (Zofran Inj) 4 mg Q6H PRN IV 06/09/16 16:00 07/09/16 15:59 Metoclopramide HCl (Reglan Inj) 10 mg Q6H PRN IV 06/09/16 16:00 07/09/16 15:59 Pantoprazole Sodium (Protonix Tab) 40 mg QAM PO 06/10/16 09:00 07/10/16 08:59 Tramadol HCl (Ultram Tab) 1 tablet for pain rating... Q4H PRN PO 06/09/16 16:00 07/09/16 15:59 Albuterol (Ventolin Hfa Inhaler) 1 puffs Q4 PRN INH 06/09/16 16:00 07/09/16 15:59 Fluticasone Propionate (Flovent Hfa 44MCG Inhaler) 2 puffs BID INH 06/09/16 21:00 07/09/16 20:59 06/11/16 08:38 2 PUFFS Folic Acid (Folvite Tab) 1 mg QAM PO 06/10/16 09:00 07/10/16 08:59 Vancomycin HCl (Consult) 1 ea UD PRN N/A 06/10/16 09:15 07/10/16 09:14 Mesalamine 2.4 gm 2.4 gm DAILY PO 06/11/16 09:00 07/11/16 08:59 06/11/16 08:38 2.4 GM Vancomycin HCl/ Sodium Chloride (Vancomycin Inj/ Nss 500ml) 530 ml @ 200 mls/hr Q10H IV 06/10/16 20:00 07/22/16 19:59 06/11/16 05:45 200 MLS/HR Objective Vital Signs Date Time Temp Pulse Resp B/P Pulse Ox O2 Delivery O2 Flow Rate FiO2 06/11/16 07:59 36.6 60 18 145/85 100 Room Air 06/11/16 07:45 Room Air 06/11/16 00:15 Room Air 06/10/16 23:59 36.7 72 16 143/82 96 Room Air 06/10/16 17:00 Room Air 06/10/16 15:37 36.9 80 18 150/84 96 Room Air Physical Exam General Appearance: WD/WN, no apparent distress Eyes: normal inspection, sclerae normal ENT: hearing grossly normal Neck: supple, trachea midline Respiratory/Chest: no respiratory distress, no accessory muscle use Cardiovascular: regular rate, rhythm Extremities: + pertinent finding (large knee immobilizer with dressing in place on right knee/leg) Neurologic/Psychiatric: alert, normal mood/affect, oriented x 3 Skin: normal color, warm/dry, no rash Laboratory Results RUN DATE: 06/10/16 [facility] PAGE 1 RUN TIME: 1221 Specimen Inquiry PATIENT: ANGELLA BLACK LOC: Doug U # : [id number] AGE/SX: 66/M ROOM: E318 REG : 06/09/[address]: Todd Shepherd M.D. : 1950 BED: 1 DIS : STATUS: ADM IN TLOC: SPEC #: [id number] DONNIE: 06/09/16 STATUS: RES REQ #: [id number] RECD: 06/09/[address]: Todd Shepherd M.D. SOURCE: JOINT FLSP ENTR: 06/09/[address]: Bel Mejia D.O. SPDESC: KNEE RIGHT ORDERED: AER/MICHELE CULTSMR Procedure Result Verified Site GRAM STAIN Final 06/10/16-724 RESULT RARE WBCs SEEN FEW GRAM POSITIVE COCCI CORRECTED REPORT Report corrected on 06/10/16 at 0721 by KANIKA. FEW GRAM POSITIVE COCCI previously reported as NO ORGANISMS SEEN. Phoned corrected report to DONNA BA on 06/10/16 at 0721 by Loreto Carrillo. Results were verbalized back to KANIKA. OR AER/MICHELE CULT Preliminary 06/10/16-1221 NO GROWTH TO DATE. Item Value Date Time Gram Stain - Final Resulted 06/09/16 1451 Joint Fluid/Space (Synovial) Knee Right Assessment and Plan Patient with recent history of right TKA in December now with questionable right septic TKA. Rare GPC seen on gram stain but culture is showing NGTD. Patient was placed on IV Vancomycin pending culture results. Orthopedics feel this patient likely would benefit from continued abx therapy for 6 weeks for concerns of underlying infection. The patient is currently on IV Vancomycin and anticipating PICC placement today/tomorrow morning. Will transition to IV Daptomycin for ease of use as outpatient. Will need weekly CBC w/diff, CMP, and CK levels while on therapy. Will check baseline CK level today. Patient will need to follow up with ID as outpatient 1-2 weeks after discharge. Thank you. Case reviewed and agree with above assessment.
[2016-06-11] MEDS ORDERED: SODIUM CHLORIDE 0.9% IV SCH (13:00)
[2016-06-11] MEDS ORDERED: DAPTOMYCIN IV SCH (13:00)
[2016-06-11] MEDS: SODIUM CHLORIDE 0.9% IV SCH (13:24)
[2016-06-11] MEDS: DAPTOMYCIN IV SCH (13:24)
[2016-06-11 14:15] LABS: INR 1.1 (0.9-1.1); PROTHROMBIN TIME (PATIENT) 11.5 SECONDS (9.0-12.0)
[2016-06-11 15:00] VITALS: BP 133/79; PULSE 69; TEMP 36.9; O2SAT 95
[2016-06-11] MEDS ORDERED: WARFARIN SOD 6 MG TAB PO SCH (16:00)
[2016-06-11] MEDS ORDERED: VANCOMYCIN TROUGH SCH (16:00)
[2016-06-11] MEDS: SENNA 8.6 MG TAB PO SCH (21:04)
[2016-06-11 23:35] VITALS: BP 130/75; PULSE 60; TEMP 36.4; O2SAT 96
[2016-06-12] MEDS: ACETAMINOPHEN 500 MG TAB PO SCH ×2 (05:58→13:30)
[2016-06-12 07:27] VITALS: BP 145/84; PULSE 65; TEMP 36.7; O2SAT 96
[2016-06-12] MEDS: PANTOprazole SOD 40 MG TAB PO SCH (08:43)
[2016-06-12] MEDS: FLUTICASONE PROP HFA INH 44 MCG INHALER INH SCH (08:43)
[2016-06-12] MEDS: MULTIVITAMIN TAB PO SCH (08:43)
[2016-06-12] MEDS: LIALDA 1.2 GM PO SCH (08:44)
[2016-06-12] MEDS: [UNRECOGNIZED DRUG - OTHER] PO SCH (08:44)
[2016-06-12] MEDS: OXYCODONE HCL 10 MG TABCR (OXYCONTIN) PO SCH (08:45)
--- NOTE | 2016-06-12 08:47 | PROGRESS NOTE ---
DATE: 06/12/2016 CHIEF COMPLAINT: Status post repair of the extensor mechanism knee. SUBJECTIVE: The patient is feeling well and has no complaints of pain today. He is comfortable in bed with a knee immobilizer on. OBJECTIVE: Again, the knee immobilizer is in place, Jasvir bandage is in place, and the surface wound suction device is in place. Hemovac has been discontinued. LABORATORY VALUES: Today, his INR is 1.1. His hemoglobin is 14.5. Note, sedimentation rate was only 4. MICROBIOLOGY: Repeated Gram stain showed rare gram positive cocci. Final cultures are no growth to date. I did speak to the lab since there were no gram positive bacilli. The propionibacterium test will not be run. ASSESSMENT: Status post repair of chronically disrupted extensor mechanism, possible infection. PLAN: I discussed with patient today at length his plan. Because of the presence of gram positive cocci and the fact that his synovium looked somewhat ill, we have decided to complete a full course of treatment with daptomycin for 6 weeks. The patient will also be in the knee immobilizer for 4 weeks and then began use of a hinged brace with gradual progressive for range of motion. He may weightbear as tolerated. We did discuss because of decreased activity, he will be on Coumadin after discharge. Discuss Coumadin monitoring with him. His blood should be tested once a week. He will be discharged today after his demonstration for IV antibiotics and home IV antibiotics is arranged. Follow up will be in 2 weeks.
[2016-06-12] MEDS ORDERED: SNK PO (08:48)
[2016-06-12] MEDS ORDERED: DAPT500I IV (08:48)
[2016-06-12] MEDS ORDERED: RXC5 PO (08:48)
[2016-06-12] MEDS ORDERED: ACET-1138 PO (08:48)
[2016-06-12] MEDS ORDERED: DAPTOMYCIN IV SCH (09:00)
[2016-06-12] MEDS ORDERED: SODIUM CHLORIDE 0.9% IV SCH (09:00)
[2016-06-12 10:21] VITALS: BP 145/84; PULSE 65; TEMP 36.7; O2SAT 96
[2016-06-12] MEDS ORDERED: CMD5 PO (10:28)
[2016-06-12 11:41] LABS: INR 1.3 (0.9-1.1); PROTHROMBIN TIME (PATIENT) 14.1 SECONDS (9.0-12.0)
[2016-06-12] MEDS: DAPTOMYCIN IV SCH (12:20)
[2016-06-12] MEDS: SODIUM CHLORIDE 0.9% IV SCH (12:20)
[2016-06-12] MEDS ORDERED: WARFARIN SOD 5 MG TAB PO SCH (16:00)
--- NOTE | 2016-06-15 17:34 | DISCHARGE SUMMARY ---
DISCHARGE DIAGNOSIS: Painful right total knee replacement with instability. SECONDARY DIAGNOSIS: Septic right total knee. CONSULTS: Dr. Queen. COMPLICATIONS: None. PROCEDURE: The patient underwent incision and drainage with poly exchange of the right total knee replacement with Dr. Shepherd on 06/09/2016. BRIEF HISTORY: Please see previously dictated history and physical. HOSPITAL SUMMARY: The patient was admitted on the above day for the above procedure. Procedure went without complication. Postop day 1, the patient was feeling well without complaints. Vital signs were stable. He was afebrile. Dressing was clean, dry and intact. He was neurovascularly intact. Calves were soft and nontender. Hemovac drained 155 and 75 mL. Hemoglobin was 13.5. Gram stain first showed few WBCs, but then was updated a few Gram-positive cocci. Cultures were no growth to date. The patient began vancomycin empirically. Dr. Queen was consulted for input. He will remain in knee immobilizer. Postop day 2, the patient continued to improve. He denied chest pain or shortness of breath. Vital signs were stable. He was afebrile. Prevena dressing was clean, dry and intact. He was neurovascularly intact. Calves were soft and nontender. Cultures were no growth to date. The patient continued on vancomycin. PICC line was ordered. He had full coverage for IV antibiotics at home and was switched to daptomycin. He remained in knee immobilizer and Coumadin for DVT prophylaxis. Postop day 3, the patient continued to improve. He denied chest pain or shortness of breath. Vital signs were stable. He was afebrile. Prevena dressing was clean, dry and intact. He was neurovascularly intact. Calves were soft and nontender. The patient continued to progress with physical therapy. Cultures were no growth. He was discharged home on 6 weeks of daptomycin IV. He was on Coumadin for DVT prophylaxis. He was instructed to wear his knee immobilizer when ambulatory. For further review please see the chart. Lab, x-ray data and discharge instructions as per chart.
== END 2016-06-12 13:52 | disposition home health service (06) | DRG 489 ==
LOC: ENRESERV → ENRESERVTM → ENRESERVDT → C.ACU 11:34 → C.3E 15:59
PROVIDERS: ADMIT Orthopaedic Surgery; ATTEND Orthopaedic Surgery
PROC: 0SPD09Z Removal of Liner from Left Knee Joint, Open Approach (ICD-10-PCS; principal; 2016-06-09 13:30)
PROC: 0SUW09Z Supplement Left Knee Joint, Tibial Surface with Liner, Open Approach (ICD-10-PCS; principal; 2016-06-09 13:30)
DX: T84.093A Other mechanical complication of internal left knee prosthesis, initial encounter (principal); J45.909 Unspecified asthma, uncomplicated; Z98.52 Vasectomy status; Z79.82 Long term (current) use of aspirin; Z79.899 Other long term (current) drug therapy; Z88.6 Allergy status to analgesic agent; Y83.1 Surgical operation with implant of artificial internal device as the cause of abnormal reaction of the patient, or of later complication, without mention of misadventure at the time of the procedure

== ENCOUNTER → 2016-08-07 | Outpatient (CLI) | payer BC ==
[~2016-08-07] MED LIST changes: +ACET-1138 PO; -ACETAMINOPHEN 500 MG TAB PO SCH; -BUPIVACAINE 0.25% 30 ML VIAL ONE; -BUPIVACAINE 0.5 % 5 MG/1 ML PF 10ML VIAL ONE; -CEFAZOLIN 2000 MG/60 ML D5W 60 ML IV SCH; +CMD5 PO; +DAPT500I IV; -DEXAMETHASONE 4 MG TAB PO SCH; -FAMOTIDINE 20 MG TAB PO SCH; -GABAPENTIN 300 MG CAP PO SCH; -LACTATED RINGER'S 1000ML 1,000 ML IV SCH; -METOCLOPRAMIDE HCL 10 MG TAB PO SCH; -OXYCODONE HCL 10 MG TABCR (OXYCONTIN) PO SCH; -POLYMYXIN B SULFATE 100,000 UNITS in NSS 100ML IR SCH; -ROPIVACAINE 5MG/ML 30 ML 150 MG, BUPIVACAINE/EPINEPHR 0.5% MPF 30 ML, KETOROLAC TROMETH... INFIL SCH; +RXC5 PO; +SNK PO; -VANCOMYCIN INJ 1,500 MG in SODIUM CHLORIDE 0.9% 500ML 500 ML IV SCH; -VANCOMYCIN INJ 400 MG in NSS 100ML IR SCH
[2016-08-07 14:44] LABS: BASO % 0.3 %; BASO ABS # 0.02 K/uL (0-0.2); COMPLETE YES; EOS % 3.8 %; HEMATOCRIT 40.1 % (42-52); LYMPH % 21.7 %; MEAN CELL VOLUME 89.3 fL (80-100); MEAN CORPUSCULAR HEMOGLOBIN 29.2 pg (25-34); MEAN CORPUSCULAR HGB CONC 32.7 g/dl (32-36); MEAN PLATELET VOLUME 9.1 fL (7.4-10.4); MONO % 12.5 %; NEUT % 61.7 %; PLATELET COUNT 222 K/uL (130-400); RED BLOOD COUNT 4.49 M/uL (4.7-6.1)
[2016-08-07 15:11] LABS: ALT/SGPT 26 U/L (12-78); BLOOD UREA NITROGEN 19 mg/dl (7-18); BUN/CREATININE RATIO 22.2 (10-20); C-REACTIVE PROTEIN 0.65 mg/dl (0-0.29); CALCIUM 8.6 mg/dl (8.5-10.1); CARBON DIOXIDE 27 mmol/L (21-32); CHLORIDE 104 mmol/L (98-107); CREATININE 0.87 mg/dl (0.60-1.40); GLUCOSE 92 mg/dl (70-99); POTASSIUM 4.2 mmol/L (3.5-5.1); SODIUM 138 mmol/L (136-145)
[2016-08-07 15:16] LABS: ALB/GLOB RATIO 1.2 (0.9-2); ALKALINE PHOSPHATASE 71 U/L (45-117); AST/SGOT 22 U/L (15-37)
== END | disposition home or self-care (01) ==
LOC: C.LAB1850 13:46
PROVIDERS: ATTEND Physician Assistant
DX: T84.59XD Infection and inflammatory reaction due to other internal joint prosthesis, subsequent encounter (principal); Y83.1 Surgical operation with implant of artificial internal device as the cause of abnormal reaction of the patient, or of later complication, without mention of misadventure at the time of the procedure